=== PATIENT | male | born 1980 | race Caucasian/White ===

== ENCOUNTER 2018-04-14 10:28 | Emergency (ER) | payer BC, OTHER ==
[~2018-04-14] VITALS: Ht 175.3 cm; Wt 79.4 kg
[2018-04-14 10:34] VITALS: BP 110/83
[2018-04-14] MEDS ORDERED: KETOROLAC TROMETH 60MG/2ML VIAL IM ONE (12:45)
[2018-04-14] MEDS ORDERED: METHOCARBAMOL 500 MG TAB PO ONE (12:45)
[2018-04-14] MEDS ORDERED: MORPHINE SULFATE 4 MG/ML SYR/VIAL IM ONE (13:15)
== END 2018-04-14 13:47 | disposition home or self-care (01) ==
LOC: ER 10:28
DX: G89.29 Other chronic pain (principal); M54.5 Low back pain
CPT/HCPCS: 96372; 99283; J1885; J2270